=== PATIENT | female | born 1950 | race Caucasian/White ===

== ENCOUNTER 2017-04-17 12:56 | Emergency (ER) | payer MEDICARE ==
[2017-04-17 13:31] LABS: URINE APPEARANCE SL CLOUDY; URINE BILIRUBIN NEGATIVE (NEGATIVE); URINE BLOOD SMALL (NEGATIVE); URINE COLOR YELLOW; URINE GLUCOSE (UA) NEGATIVE (NEGATIVE); URINE KETONE NEGATIVE (NEGATIVE); URINE LEUKOCYTE ESTERASE LARGE (NEGATIVE); URINE NITRITE POSITIVE (NEGATIVE); URINE PROTEIN TRACE (NEGATIVE); URINE UROBILINOGEN 0.2 E.U./dL (0.20 - 1.00)
--- NOTE | 2017-04-17 13:34 | Emergency Department Record ---
History of Present Illness - General Chief complaint: Female Urogenital Problem Stated complaint: UTI Time Seen by Provider: 04/17/17 13:05 Source: Patient, Family Mode of Arrival: Wheelchair - History of Present Illness Initial comments: The patient states that since yesterday her urine has had a bad smell, and today it is milky and decreased in amount from the suprapubic catheter she has. She is due to have it changed this upcoming Wednesday04-20-17 in her urologist's office. 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 Since then she developed non-Hodgkins lymphoma, likely from the XRT she had as a teen. This past December she was pronounced cancer free from the lymphoma. She had nausea earlier today but not now. She does not vomit. she states cipro is usually used for her uti. Onset/Timin -: Days(s) Location: Suprapubic Severity: Mild Severity scale (1-10): 3 Quality: Aching Consistency: Intermittent Improves with: None Worsens with: Urination Patient : No Associated Symptoms: Abdominal pain - Related Data Sexually active: No Home Medications Medication Instructions Recorded Confirmed Last Taken Aspirin [Aspirin EC] 81 mg PO DAILY 12/20/14 04/17/17 12/20/14 Fluoxetine HCl [Prozac] 20 mg PO DAILY 12/20/14 04/17/17 12/20/14 Hydrocodone/Acetaminophen [[place] 1 tab PO Q6H PRN 12/20/14 04/17/17 12/20/14 7.5-325 Tablet] Levothyroxine Sodium [Levoxyl] 50 mcg PO DAILY 12/20/14 04/17/17 04/17/17 Pantoprazole Sodium [Protonix] 40 mg PO DAILY 12/20/14 04/17/17 04/17/17 Pravastatin Sodium [Pravachol] 40 mg PO DAILY 12/20/14 04/17/17 12/20/14 Tizanidine HCl [Zanaflex] 4 mg PO TID 12/20/14 04/17/17 12/20/14 Albuterol Sulfate 2.5 mg NEB Q6H ml 02/26/16 04/17/17 Unknown Methenamine Hippurate [Hiprex] 1 gm PO DAILY tab 02/26/16 04/17/17 Unknown Ondansetron [Ondansetron Odt] 4 mg PO ASDIR tab.rapdis 02/26/16 04/17/17 Unknown Topiramate [Topamax] 50 mg PO ASDIR tab 02/26/16 04/17/17 Unknown Clopidogrel Bisulfate [Clopidogrel] 75 mg PO DAILY 04/17/17 04/17/17 Unknown Pregabalin [Lyrica] 50 mg PO TID 04/17/17 04/17/17 Unknown Solifenacin Succinate [Vesicare] 10 mg PO BID 04/17/17 04/17/17 Unknown Previous Rx's Medication Instructions Recorded Ciprofloxacin HCl [Cipro] 500 mg PO Q12HR #20 tablet 04/17/17 Allergies Allergy/AdvReac Type Severity Reaction Status Date / Time caffeine Allergy Unknown VOMITING Verified 04/17/17 13:06 codeine Allergy Unknown VOMITING Verified 04/17/17 13:06 Travel Screening - Travel/Exposure Within Last 30 Days Have you traveled within the last 30 days?: No Review of Systems Reviewed: No additional complaints except as noted below Constitutional: Reports: As per HPI. Denies: Chills, Fever, Malaise, Night sweats, Weakness, Weight change Eyes: Reports: As per HPI. Denies: Eye discharge, Eye pain, Photophobia, Vision change ENT: Reports: As per HPI. Denies: Congestion, Dental pain, Ear pain, Epistaxis , Hearing loss, Throat pain Respiratory: Reports: As per HPI. Denies: Cough, Dyspnea, Hemoptysis, Stridor, Wheezes Cardiovascular: Reports: As per HPI. Denies: Arrhythmia, Chest pain, Dyspnea on exertion, Edema, Murmurs, Orthopnea, Palpitations, Paroxysmal nocturnal dyspnea, Rheumatic Fever, Syncope Endocrine: Reports: As per HPI. Denies: Fatigue, Heat or cold intolerance, Polydipsia, Polyuria Gastrointestinal: Reports: As per HPI. Denies: Abdominal pain, Constipation, Diarrhea, Hematemesis, Hematochezia, Melena, Nausea, Vomiting Genitourinary: Reports: As per HPI. Denies: Abnormal menses, Discharge, Dyspareunia, Dysuria, Frequency, Hematuria, Incontinence, Retention, Urgency Musculoskeletal: Reports: As per HPI. Denies: Arthralgia, Back pain, Gout, Joint swelling, Myalgia, Neck pain Skin: Reports: As per HPI. Denies: Bruising, Change in color, Change in hair/ nails, Lesions, Pruritus, Rash Neurological: Reports: As per HPI. Denies: Abnormal gait, Confusion, Headache, Numbness, Paresthesias, Seizure, Tingling, Tremors, Vertigo, Weakness Psychiatric: Reports: As per HPI. Denies: Anxiety, Auditory hallucinations, Depression, Homicidal thoughts, Suicidal thoughts, Visual hallucinations Hematological/Lymphatic: Reports: As per HPI. Denies: Anemia, Blood Clots, Easy bleeding, Easy bruising, Swollen glands Past Medical History - SOCIAL HISTORY Smoking Status: Former smoker Alcohol Use: None Drug Use: None - RESPIRATORY Hx Respiratory Disorders: Yes Hx Asthma: Yes - CARDIOVASCULAR Hx Cardio Disorders: Yes Hx Cardiac Cath: Yes Hx Hypertension: Yes Comment:: Valve replacement - NEURO Hx Neuro Disorders: No - GI Hx GI Disorders: Yes Hx Reflux: Yes Hx Ulcer: Yes - Hx Genitourinary Disorders: Yes Hx UTI: Yes Comment:: suprapubic catheter - ENDOCRINE Hx Endocrine Disorders: Yes Hx Thyroid Disease: Yes - MUSCULOSKELETAL Hx Musculoskeletal Disorders: Yes Hx Arthritis: Yes Hx Musculoskeletal Disease: Yes (Chronic thoracic myopathy) - PSYCH Hx Psych Problems: No - HEMATOLOGY/ONCOLOGY Hx Hematology/Oncology Disorders: Yes Hx Cancer: Yes (Melanoma) Hx Radiation Therapy: Yes Family Medical History Any Significant Family History?: Yes Hx Heart Disease: Father, Mother Physical Exam - General General Appearance: Alert, Oriented x3, Cooperative, No acute distress, Other ( chronically ill, wheelchair bound.) Limitations: Physical limitation - Head Head exam: Normal inspection - Eye Eye exam: Normal appearance, PERRL Pupils: Normal accommodation - ENT ENT exam: Normal exam, Mucous membranes moist, Normal external ear exam, Normal orophraynx, TM's normal bilaterally Ear exam: Normal external inspection. negative: External canal tenderness Nasal Exam: Normal inspection. negative: Discharge, Sinus tenderness Mouth exam: Normal external inspection, Tongue normal Teeth exam: Normal inspection. negative: Dental caries Throat exam: Normal inspection. negative: Tonsillar erythema, Tonsillar exudate - Neck Neck exam: Normal inspection, Full ROM. negative: Tenderness - Respiratory Respiratory exam: Normal lung sounds bilaterally, Other (port right side of chest noted). negative: Respiratory distress - Cardiovascular Cardiovascular Exam: Regular rate, Normal rhythm, Normal heart sounds - GI/Abdominal GI/Abdominal exam: Soft, Normal bowel sounds, Other (suprapubic catheter in place). negative: Tenderness - Rectal Rectal exam: Deferred - exam: Deferred - Extremities Extremities exam: Normal inspection, Full ROM, Normal capillary refill, Other ( bilateral foot drop with bilateral motor atrophy). negative: Tenderness - Back Back exam: Reports: Normal inspection, Full ROM. Denies: Muscle spasm, Rash noted, Tenderness - Neurological Neurological exam: Alert, Oriented X3 - Psychiatric Psychiatric exam: Normal affect, Normal mood - Skin Skin exam: Dry, Intact, Normal color, Warm Course Vital Signs 04/17/17 13:01 Temperature 97.5 F L Pulse Rate 79 Respiratory 20 Rate Blood Pressure 137/72 Pulse Ox 100 Medical Decision Making - Management Options MDM Management: No Additional Work-up Planned - Data Complexity MDM Data: Labs Ordered and/or Reviewed (UA: 4 + bacteria; TNTC WBC; 0-2 squamous ) Disposition Disposition: Discharge Clinical Impression: UTI (urinary tract infection) Qualifiers: Urinary tract infection type: catheter-associated UTI Indwelling urinary catheter type: cystostomy catheter Encounter type: initial encounter Qualified Code(s): T83.510A - Infection and inflammatory reaction due to cystostomy catheter, initial encounter; N39.0 - Urinary tract infection, site not specified Disposition: Home, Self-Care Condition: (1) Good Instructions: Urinary Tract Infection in Women (ED) Additional Instructions: Take antibiotics cipro until gone. Follow up with urologist Wednesday04-19-17 as previously arranged for recheck and catheter change. Tylenol or ibuprofen as directed as needed for pain. Continue present meds. Take your zofran from home if needed for nausea. Prescriptions: Ciprofloxacin HCl [Cipro] 500 mg PO Q12HR #20 tablet
[2017-04-17 13:37] LABS: URINE BACTERIA 4+; URINE RBC 0 - 2 (NONE SEEN); URINE SQUAMOUS EPITHELIAL CELL 0 - 2 /hpf
== END 2017-04-17 14:23 | disposition home or self-care (01) ==
LOC: ER 12:56
DX: T83.510A Infection and inflammatory reaction due to cystostomy catheter, initial encounter (principal); N39.0 Urinary tract infection, site not specified
CPT/HCPCS: 81001; 99282

== ENCOUNTER 2018-11-05 10:36 | Emergency (ER) | payer MEDICARE ==
--- NOTE | 2018-11-05 12:40 | Emergency Department Record ---
History of Present Illness - General Stated Complaint: LT EAR PAIN,UTI,SINUS,COUGH Time Seen by Provider: 11/05/18 12:29 Source: Patient Mode of Arrival: Ambulatory Limitations: No limitations - History of Present Illness Initial Comments: 68 yo female presents with cough that has progressed throughout the week. No fevers or chills. The cough has become more congested and rattles. Clear sputum. No nausea, vomiting or chest pain. She has had an indwelling tran for 3 years. She has noted a change in the color and sedimentation the last day as well. No abdominal pain. She is eating and drinking. MD Complaint: Cough, Nasal congestion, Other (change in urine color) Consistency: Constant Improves With: Nothing Worsens With: Other (Cough) Associated Symptoms: Cough Treatments Prior to Arrival: None - Related Data Previous Rx's Medication Instructions Recorded Nitrofurantoin Monohyd/M-Cryst 100 mg PO BID #28 capsule 11/05/18 [Macrobid 100 mg Capsule] Nitrofurantoin Monohyd/M-Cryst 100 mg PO BID #28 capsule 11/05/18 [Macrobid 100 mg Capsule] Allergies Allergy/AdvReac Type Severity Reaction Status Date / Time caffeine Allergy Unknown VOMITING Unverified 08/12/18 14:57 codeine Allergy Unknown VOMITING Unverified 08/12/18 14:57 Review of Systems Constitutional: Denies: Chills, Fever, Malaise, Weakness Eyes: Denies: Eye discharge ENT: Reports: Congestion Respiratory: Reports: Cough. Denies: Dyspnea, Hemoptysis, Stridor, Wheezes Cardiovascular: Denies: Chest pain, Palpitations, Syncope Endocrine: Reports: Fatigue Gastrointestinal: Denies: Abdominal pain, Diarrhea, Nausea, Vomiting Genitourinary: Reports: Other (Darker urine). Denies: Dysuria, Urgency Musculoskeletal: Denies: Arthralgia, Myalgia, Neck pain Skin: Denies: Bruising, Change in color, Rash Neurological: Denies: Headache Psychiatric: Denies: Anxiety Hematological/Lymphatic: Denies: Easy bleeding, Easy bruising Past Medical History - SOCIAL HISTORY Smoking Status: Former smoker Drug Use: None - RESPIRATORY Hx Respiratory Disorders: Yes Hx Asthma: Yes - CARDIOVASCULAR Hx Cardio Disorders: Yes Hx Cardiac Cath: Yes Hx Hypertension: Yes Comment:: Valve replacement - NEURO Hx Neuro Disorders: No - GI Hx GI Disorders: Yes Hx Reflux: Yes Hx Ulcer: Yes - Hx Genitourinary Disorders: Yes Hx UTI: Yes Comment:: suprapubic catheter - ENDOCRINE Hx Endocrine Disorders: Yes Hx Thyroid Disease: Yes - MUSCULOSKELETAL Hx Musculoskeletal Disorders: Yes Hx Arthritis: Yes Hx Musculoskeletal Disease: Yes (Chronic thoracic myopathy) - PSYCH Hx Psych Problems: No - HEMATOLOGY/ONCOLOGY Hx Hematology/Oncology Disorders: Yes Hx Cancer: Yes (Melanoma) Hx Radiation Therapy: Yes Family Medical History Hx Heart Disease: Father, Mother Physical Exam - General General Appearance: Alert, Oriented x3, Cooperative, No acute distress Limitations: No limitations - Head Head exam: Atraumatic, Normal inspection - Eye Eye exam: Normal appearance. negative: Conjunctival injection - ENT ENT exam: Normal exam, Mucous membranes moist Ear exam: Normal external inspection Nasal Exam: Normal inspection Mouth exam: Normal external inspection - Neck Neck exam: Normal inspection - Respiratory Respiratory exam: Normal lung sounds bilaterally. negative: Respiratory distress - Cardiovascular Cardiovascular Exam: Regular rate, Normal rhythm, Normal heart sounds - GI/Abdominal GI/Abdominal exam: Soft. negative: Tenderness - Rectal Rectal exam: Deferred - exam: Deferred - Extremities Extremities exam: Normal inspection - Back Back exam: Denies: CVA tenderness (R), CVA tenderness (L) - Neurological Neurological exam: Alert, Oriented X3 - Psychiatric Psychiatric exam: Normal affect, Normal mood - Skin Skin exam: Dry, Intact, Normal color, Warm Course Vital Signs 11/05/18 12:31 Temperature 98.8 F Pulse Rate [ 94 H Pulse Ox Probe] Respiratory 20 Rate Blood Pressure 122/78 [Left Arm] Pulse Ox 97 - Reevaluation(s) Reevaluation #1: 11/05/18 12:41 Vitals reviewed. No significant abnormalities. 11/05/18 13:11 The UA is a tran specimen consistent with UTI and she is having symptoms so she will be treated. 11/05/18 13:16 08/12/18 culture reviewed. Ecoli, MRSA, Macrobid S. 11/05/18 14:09 The CXR is negative The patient is ready for DC We discussed that a culture will be sent. We discussed reasons to return to the ED Disposition Disposition: Discharge Clinical Impression: Urinary tract infection, Bronchitis Disposition: Home, Self-Care Condition: (1) Good Instructions: Urinary Tract Infection in Women (ED) Additional Instructions: Stay well hydrated Call your doctor first of the week Return if worse, fever, vomiting, short of breath Prescriptions: Nitrofurantoin Monohyd/M-Cryst [Macrobid 100 mg Capsule] 100 mg PO BID #28 capsule Nitrofurantoin Monohyd/M-Cryst [Macrobid 100 mg Capsule] 100 mg PO BID #28 capsule Forms: Patient Portal Access Time of Disposition: 14:09 Quality - Quality Measures Quality Measures: N/A - Blood Pressure Screening Does Patient Have Any of the Following: No Blood Pressure Classification: Pre-Hypertensive BP Reading Systolic Measurement: 122 Diastolic Measurement: 78 Screening for High Blood Pressure: < Pre-Hypertensive BP, F/U Documented > [ [id number]] Pre-Hypertensive Follow-up Interventions: Referral to alternative/primary care provider.
[2018-11-05 12:49] LABS: URINE APPEARANCE CLEAR; URINE BILIRUBIN NEGATIVE (NEGATIVE); URINE BLOOD TRACE-I (NEGATIVE); URINE COLOR YELLOW; URINE GLUCOSE (UA) NEGATIVE (NEGATIVE); URINE KETONE NEGATIVE (NEGATIVE); URINE LEUKOCYTE ESTERASE LARGE (NEGATIVE); URINE NITRITE POSITIVE (NEGATIVE); URINE PROTEIN NEGATIVE (NEGATIVE); URINE UROBILINOGEN 0.2 E.U./dL (0.20 - 1.00)
[2018-11-05 13:01] LABS: URINE BACTERIA 4+; URINE TRIPLE PHOSPHATE CRYSTAL 2+ /hpf
[2018-11-05 13:02] LABS: URINE AMORPHOUS SEDIMENT 2+
[2018-11-05 13:03] LABS: INFLUENZA A NEGATIVE (NEGATIVE); INFLUENZA B NEGATIVE (NEGATIVE)
[2018-11-05] MEDS ORDERED: NITROFURANTOIN MONO 100 MG CAPSULE PO ONE (13:15)
--- NOTE | 2018-11-07 13:52 | RADIOLOGY REPORT ---
DATE: 11/05/2018 at 1331 hours. EXAM: TWO-VIEW CHEST. HISTORY: PRODUCTIVE COUGH FOR THE PAST SIX DAYS. TECHNIQUE: PA and lateral views of the chest were obtained. COMPARISON: 08/12/2018. FINDINGS: The patient is status post median sternotomy. An Infusaport catheter is in place. There is increased thoracic kyphosis secondary to compression deformities within the mid thoracic spine. This appears unchanged. The heart is normal in size. There is calcification of the aorta. The mediastinum and pulmonary vasculature are normal. There are no visible acute infiltrates or effusions. There is no pneumothorax. IMPRESSION: STABLE CHEST WITH NO ACUTE PROCESS IDENTIFIED. JOB NUMBER: [id number] MTDD
== END 2018-11-05 14:17 | disposition home or self-care (01) ==
LOC: ER 10:36
DX: N39.0 Urinary tract infection, site not specified (principal); J20.9 Acute bronchitis, unspecified; I10 Essential (primary) hypertension; Z87.891 Personal history of nicotine dependence
CPT/HCPCS: 71046; 81001; 87400; 99283; 99284